=== PATIENT | female | born 2000 | race Caucasian/White ===

== ENCOUNTER 2022-11-29 13:59 | Outpatient (REF) | payer MEDICAID, SELFPAY ==
--- NOTE | 2022-11-29 11:30 | PAPFT_PTH ---
PATIENT: Terese Sharpe [id number] AGE/SX: 22/F ROOM: RE11/29/[address]: Rory Sullivan : 2000 BED: DIS: 11/29/2022 SPEC #: [id number] RECD: 11/29/22 18:24 STATUS: TERRY REQ #: [id number] JONN: 11/29/22 11:[address]: Rory Sullivan DEPT: [facility] Cytology RECD BY: Arminda Roberts Tissues: 1 - CX/ENDOCX FOR PAP SMEARS Procedures: PAP THIN PREP/[facility] Screening Comments: [id number]
[2022-12-01 14:01] LABS: Chlamydia Result Negative (Negative); GC Result Negative (Negative)
== END 2022-11-29 14:00 | disposition home or self-care (01) ==
LOC: NCHCN 13:59
PROVIDERS: PCP Physician Assistant Medical; Visit Provider Physician Assistant Medical
DX: Z11.3 Encounter for screening for infections with a predominantly sexual mode of transmission (principal); Z12.4 Encounter for screening for malignant neoplasm of cervix
CPT/HCPCS: 87491; 87591; 88142